=== PATIENT | male | born 1970 | race Caucasian/White ===

== ENCOUNTER 2022-05-04 16:00 | Emergency (ER) | payer SELFPAY ==
[~2022-05-04] VITALS: Ht 185.5 cm; Wt 95.3 kg
[~2022-05-04 16:00] MED LIST: ASPI-586 PO; CLIN-144 PO; DOXY100C2 PO; LISI10TA25 PC; PRD20T PO; PROP1TAB77 PO; RT-COMBINH IH
[2022-05-04] MEDS ORDERED: BSS 15 ML IR ONE (16:45)
[2022-05-04] MEDS ORDERED: FLUORESCEIN (FLUOR-I-STRIPS) 1 MG STRP OU ONE (16:45)
[2022-05-04] MEDS ORDERED: TETRACAINE 0.5% OPHTH SOLN 4 ML BTL (SINGLE DOSE ONLY) OU ONE (16:45)
--- NOTE | 2022-05-04 16:53 | ED General ---
General Chief Complaint: Eye Problems Stated Complaint: RIGHT EYE PAIN Nursing Triage Note: PT AMBULATE TO ROOM FT1 WITH C/O RIGHT EYE PAIN AND REDNESS. PT STATES HE THINKS HE HAS ANOTHER COLD SORE TO RIGHT EYE. PT STATES WAS SEEN AT [facility] IN [place] AND GIVEN ABX OINTMENT. PT REPORTS SYMPTOMS HAVE WORSENED. Source of Information: Patient Exam Limitations: No Limitations (JUAN MCFARLAND MED STUDENT) History of Present Illness Date Seen by Provider: May 04, 2022 Time Seen by Provider: 16:30 Initial Comments Robe Cali is a 51 yo male who presents with right eye pain. Pt reports he has had right eye pain since last Friday. 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 Pt states he was being treated for this by opthalmologist in [place], but just moved here to [place]. He reports blurry vision with right eye pain. States he has been remodeling a house and got something in his eye recently. This has previously precipitated an attack, as well as increased stress. Pt saw [facility] clinic in [place] for this issue on Friday and was given erythromycin ointment, but this has not been helping. Denies LEE, fever, chills, dizziness, facial lesions. Timing/Duration: 1 Week Severity: Mild Associated Systoms: Denies Symptoms (JUAN MCFARLAND STUDENT) Allergies and Home Medications Allergies Coded Allergies: No Known Drug Allergies (Unverified , 06/23/10) Patient Home Medication List Home Medication List Reviewed: Yes (VIPUL FUENTES MD) Acyclovir (Acyclovir) 400 Mg Tablet, 400 MG PO QID Prescribed by: VIPUL FUENTES on 05/04/22 1741 Clindamycin HCl (Clindamycin HCl) 300 Mg Capsule, 300 MG PO QID Prescribed by: JAMIE FISHER on 05/04/16 1111 Lisinopril (Lisinopril) 10 Mg Tablet, 1 TAB PC DAILY, (Reported) Entered as Reported by: TAYLOR DUNCAN on 05/14/16 0205 Trifluridine (Trifluridine) 1 % Drops, 1 DROP OP 5x/D Prescribed by: VIPUL FUENTES on 05/04/22 1815 Discontinued Medications Trifluridine (Trifluridine) 1 % Drops, 1 DROP OP 5x/d Prescribed by: VIPUL FUENTES on 05/04/22 7325 Review of Systems Review of Systems Constitutional: No chills, No fever EENTM: No blurred vision, No vision loss, No nose congestion, No throat pain, No throat swelling Respiratory: No cough, No short of breath Gastrointestinal: No abdominal pain, No constipation, No diarrhea, No nausea, No vomiting Genitourinary: No dysuria, No frequency Musculoskeletal: no symptoms reported Skin: No lesions, No lumps, No pruritus, No rash Psychiatric/Neurological: Other (increased stress) Hematologic/Lymphatic: No Symptoms Reported Immunological/Allergic: no symptoms reported (JUAN MCFARLAND [employer] STUDENT) Past Kiubuhx-Mdtybn-Vzqjgv Hx Patient Social History Tobacco Use?: Yes Smoking Status: Heavy Tobacco Smoker Smokeless Tobacco Frequency: Never a User Use of E-Cig and/or Vaping dev: No Use of E-Cig and/or Vaping Louis: Never a User Substance use?: No Alcohol Use?: No Pt feels they are or have been: No (JUAN MCFARLAND [employer] STUDENT) Immunizations Up To Date Tetanus Booster (TDap): Less than 5yrs (JUAN MCFARLAND [employer] STUDENT) Seasonal Allergies Seasonal Allergies: No (JUAN MCFARLAND [employer] STUDENT) Past Medical History Orthopedic COPD Hypertension Reproductive Disorders: No Adverse Reaction/Blood Tranf: No (JUAN MCFARLAND [employer] STUDENT) Physical Exam Vital Signs Vital Signs - First Documented 05/04/22 05/04/22 16:07 18:27 Temp 36.6 Pulse 96 Resp 15 B/P (MAP) 131/76 (94) Pulse Ox 97 O2 Delivery Room Air (VIPUL FUENTES MD) Vital Signs Capillary Refill : Less Than 3 Seconds (JUAN MCFARLAND MED STUDENT) Height, Weight, BMI Height: 6'1" Weight: 200lbs. oz. 90.331820bf; 27.00 BMI Method:Stated General Appearance: No Apparent Distress, WD/WN HEENT: PERRL/EOMI, Photophobia, Other (right eye erythema with corneal abrasion visualized on slit lamp) Neck: Full Range of Motion, Normal Inspection Respiratory: Chest Non Tender, Normal Breath Sounds Cardiovascular: Regular Rate, Rhythm, No Murmur Gastrointestinal: Normal Bowel Sounds, Non Tender Extremity: Normal Capillary Refill, Non Tender Neurologic/Psychiatric: Alert, Oriented x3, Normal Mood/Affect Skin: Normal Color, Warm/Dry Lymphatic: No Adenopathy (JUAN MCFARLAND A MED STUDENT) Progress/Results/Core Measures Suspected Sepsis SIRS Temperature: Pulse: 96 Respiratory Rate: 15 Blood Pressure 131 /76 Mean: 94 (JUAN MCFARLAND MED STUDENT) Results/Orders My Orders Orders - VIPUL FUENTES MD Tetracaine 0.5% Ophth Piedad Sdv (Tetracai (05/04/22 16:45) Fluorescein Strips ([id number]-[id number]-Duvnkx) (05/04/22 16:45) Balanced Salt Irrigation Soln (Bss Irrig (05/04/22 16:45) Acyclovir Capsule/Tablet (Zovirax Caps (05/04/22 17:41) Acyclovir Capsule/Tablet (Zovirax Caps (05/04/22 18:17) (VIPUL FUENTES MD) Medications Given in ED (VIPUL FUENTES MD) Vital Signs/I&O 05/04/22 05/04/22 16:07 18:27 Temp 36.6 36.9 Pulse 96 80 Resp 15 16 B/P (MAP) 131/76 (94) 133/97 Pulse Ox 97 O2 Delivery Room Air Room Air (VIPUL FUENTES MD) Vital Signs/I&O Capillary Refill : Less Than 3 Seconds (JUAN MCFARLAND MED STUDENT) Blood Pressure Mean: 94 Progress Note : Time: 17:47 Progress Note 51yo male with a 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 sx onset the last week of eye irritation, redness, discomfort and blurry vision. 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 on exam no obvious foreign body. eye stained and he does have uptake across the center of the pupil. injected sclerae/ PERRL. 20/100 right eye and 20/15 left. EOMI. no eye pain to palpation. no preauricular LAD. no significant drainage. I spoke with Dr Escalante at [facility] and she recommends acyclovir 400mg QID and an antiviral drop- patient currently without insurance and Zirgan is $400 even with a coupon. They do not have Viroptic in stock and it will be Friday before they can get it in. I am going to go ahead and send over a rx for the viroptic anyway and Dr Escalante will contact the patient for follow up. Update: Dr Lewis was able to find some samples of anti-viral eye drops in his office for the patient and brought these to the ER for the patient prior to him leaving at 1900. Follow up arrangements for the office made with the patient . (VIPUL FUENTES MD) Departure Impression Primary Impression: Superficial keratitis of right eye Disposition: HOME, SELF-CARE Condition: Stable Departure-Patient Inst. Decision time for Depature: 17:53 (VIPUL FUENTES MD) Referrals: JIM LEWIS OD,LOCAL PHYSICIAN (PCP) Primary Care Physician Patient Instructions: Herpes Keratitis Add. Discharge Instructions: use the antibiotic drops as directed - [facility] will have it in on Friday. (Viroptic/Trifllurodine 1 drop 5x a day for [address] Lewis (eye doctor) or Dr Escalante will contact you for an appointment likely before Friday. Acyclovir 400mg 4 times a day by mouth. If worsening pain, vision problems or any other concerns, please come back to the ER for re-evaluation. Scripts Trifluridine (Trifluridine) 1 % Drops 1 DROP OP 5x/D for 7 Days, #1 DROPS 1 drop right eye 5 times a day for 7 days Prov: VIPUL FUENTES MD 05/04/22 Acyclovir (Acyclovir) 400 Mg Tablet 400 MG PO QID, #28 TAB Prov: VIPUL FUENTES MD 05/04/22 Verification and Attestation of Medical Student E/M Service A medical student performed and documented this service in my presence. I reviewed and verified all information documented by the medical student and made modifications to such information, when appropriate. I personally performed the physical exam and medical decision making. Vipul Fuentes, May 04, 2022,17:59 (VIPUL FUENTES MD) Images Eye 1 - Dye uptake (fluorescein) 2 - Dye uptake (fluorescein) (VIPUL FUENTES MD) Copy Copies To 1: JIM LEWIS OD, [place] A MED STUDENT May 04, 2022 16:53 VIPUL FUENTES MD May 04, 2022 17:41
[2022-05-04] MEDS ORDERED: ACYC400T21 PO (17:41)
[2022-05-04] MEDS ORDERED: ACYCLOVIR 400 MG TABLET (ZOVIRAX) PO STA (17:41)
[2022-05-04] MEDS ORDERED: TRIF7.5D6 OP ×2 (17:55→18:15)
[2022-05-04] MEDS ORDERED: ACYCLOVIR 400 MG TABLET (ZOVIRAX) ONE (18:17)
[2022-05-04 18:27] VITALS: BP 133/97
== END 2022-05-04 18:27 | disposition home or self-care (01) ==
LOC: EDUNIT# 16:00 → ER 16:03
DX: H16.101 Unspecified superficial keratitis, right eye (principal); F17.290 Nicotine dependence, other tobacco product, uncomplicated; Z28.310 Unvaccinated for COVID-19
CPT/HCPCS: 99283